=== PATIENT | female | born 1960 | race Caucasian/White ===

== ENCOUNTER → 2016-08-26 | Outpatient (CLI) | payer BC ==
--- NOTE | 2016-08-26 12:10 | RAD ---
DATE: 08/26/2016 EXAM: MAMMO GISELL DIAG RT, BREAST RIGHT HISTORY: Follow-up nodule COMPARISON: 02/26/2016 This study was interpreted with the benefit of Computerized Aided Detection (CAD). FINDINGS: 2-D and 3-D tomosynthesis imaging was performed in CC and MLO projections. The breasts are heterogeneously dense which can decrease the sensitivity of mammography. No suspicious microcalcifications are evident. A small opacity seen in the upper outer quadrant of the right breast on the oblique tomograms of the previous study is not clearly delineated on today's mammograms. No new or enlarging breast nodule is seen in that region. In the medial aspect of the right breast at the 3-4 o'clock location there is a 4 mm smooth nodule identified on axial tomograms image #19. It is located approximately 4-5 cm in the nipple. On axial tomographic image 28 there is a smaller 2.5 mm nodule seen at approximately the 3:00 location in the right breast, 7 cm from the nipple. In retrospect these densities were present on the previous study and appear unchanged. Right breast ultrasound, 08/26/2016: A targeted ultrasound exam of the right breast was performed. At the 10:00 location approximately 6 cm from the nipple there is a small oval-shaped hypoechoic nodule measuring approximately 3.5 mm in greatest diameter. Its margins are smooth. It is unchanged since the 02/26/2016 exam. This only represents a tiny fibroadenoma or complicated cyst. We also targeted the medial aspect of the right breast from the 2:00 to 4:00 locations. A tiny slightly hypoechoic nodule measuring 3 mm in diameter was identified at 3:00 location approximately 3 cm from the nipple. Its margins are smooth. This demonstrates similar characteristics to the 10:00 nodule. This probably corresponds to one of the nodules seen on the mammograms. No other abnormality is seen in this region of the right breast. IMPRESSION: 1. Unchanged small, smooth nodule at the 10:00 location of the right breast. 2. Two small unchanged nodules in the medial aspect of the right breast. Only one is visible sonographically and it demonstrates probably benign features. Follow-up right breast ultrasound at the time of the patient's routine bilateral mammograms in 6 months is suggested to further establish stability. BI-RADS CATEGORY: 3 PROBABLY BENIGN FINDING(S)-SHORT INTERVAL FOLLOW-UP SUGGESTED RECOMMENDED FOLLOW-UP: 6M 6 MONTH FOLLOW-UP PQRS compliance statement: Patient information was entered into a reminder system with a target due date for the next mammogram. Mammography is a sensitive method for finding small breast cancers, but it does not detect them all and is not a substitute for careful clinical examination. A negative mammogram does not negate a clinically suspicious finding and should not result in delay in biopsying a clinically suspicious abnormality. "Our facility is accredited by the [employer] Mammography Program."
== END | disposition home or self-care (01) ==
LOC: MAMMO 09:56
PROVIDERS: ATTEND Physician Assistant Medical
DX: N63 Unspecified lump in breast (principal)
CPT/HCPCS: 76641; G0206; G0279; 77061; 77065

== ENCOUNTER → 2016-11-16 | Outpatient (CLI) | payer BC ==
--- NOTE | 2016-11-16 09:49 | RAD ---
CHEST PA LATERAL Technique: PA and lateral views of the chest were obtained. Clinical History: CHEST CONGESTION W PROD COUGH X 5 DAYS Comparison: Chest radiograph dated 10/01/2015. Findings: Normal lung volume. Emphysematous changes. No focal consolidation. Remote granulomatous disease. No pleural effusion. No pneumothorax. The cardiomediastinal silhouette is normal. The great vessels of the thorax are normal. No acute osseous abnormality. Impression: No acute cardiopulmonary process..
== END | disposition home or self-care (01) ==
LOC: DXRADRC 07:39
PROVIDERS: ATTEND Physician Assistant Medical
DX: R09.89 Other specified symptoms and signs involving the circulatory and respiratory systems (principal); R05 Cough
CPT/HCPCS: 71020

== ENCOUNTER → 2017-02-24 | Outpatient (CLI) | payer BC ==
--- NOTE | 2017-02-24 14:32 | RAD ---
DATE: 02/24/2017 EXAM: DIGITAL DIAGNOSTIC BILATERAL, BREAST BILATERAL HISTORY: 6 month follow-up on the right, routine yearly screening on the left. COMPARISON: 08/26/2016 This study was interpreted with the benefit of Computerized Aided Detection (CAD). The breast parenchyma is heterogeneously dense, which could reduce sensitivity of mammography. Breast parenchyma level C. FINDINGS: 2-D and 3-D tomosynthesis imaging was performed. On the right there is a smooth 3-4 mm nodule in the medial aspect of the right breast as noted on CC tomograms #20. On CC tomogram image #30 there is a smaller 2.5 mm nodule in the medial aspect of the right breast. These findings are unchanged since 08/26/2016. No new or enlarging breast densities are seen. No suspicious microcalcifications are evident. Right breast ultrasound, 02/24/2017: A targeted ultrasound exam of the right breast was performed in the areas of abnormality identified on the 08/26/2016 study. At the 10:00 location in the right breast, approximately 6 cm from the nipple, a small hypoechoic nodule is again identified. It is unchanged in size measuring approximately 3.5 mm. Its margins are smooth. At the 3:00 location in the right breast, approximately 3 cm in the nipple, there is a slightly smaller nodule with similar sonographic characteristics. It measures 3 mm and is unchanged. These both probably represent small fibroadenomas or complicated cysts. No new abnormality is seen. IMPRESSION: Stable benign-appearing right breast nodules. Follow-up right breast ultrasound and right mammography in 6 months is suggested. BI-RADS CATEGORY: 3 PROBABLY BENIGN FINDING(S)-SHORT INTERVAL FOLLOW-UP SUGGESTED RECOMMENDED FOLLOW-UP: 6M 6 MONTH FOLLOW-UP PQRS compliance statement: Patient information was entered into a reminder system with a target due date for the next mammogram. Mammography is a sensitive method for finding small breast cancers, but it does not detect them all and is not a substitute for careful clinical examination. A negative mammogram does not negate a clinically suspicious finding and should not result in delay in biopsying a clinically suspicious abnormality. "Our facility is accredited by the [employer] Mammography [employer]."
== END | disposition home or self-care (01) ==
LOC: MAMMO 12:45
PROVIDERS: ATTEND General Practice
DX: N63.10 Unspecified lump in the right breast, unspecified quadrant (principal)
CPT/HCPCS: 76641; G0204; 77066

== ENCOUNTER → 2017-09-03 | Outpatient (CLI) | payer BC ==
--- NOTE | 2017-09-03 15:23 | RAD ---
DATE: 09/03/2017 EXAM: MAMMO GISELL JOSEG RT, BREAST RIGHT HISTORY: 6 month follow-up COMPARISON: 02/24/2017. This study was interpreted with the benefit of Computerized Aided Detection (CAD). The breast parenchyma is heterogeneously dense, which could reduce sensitivity of mammography. Breast parenchyma level C. FINDINGS: 2-D and 3-D tomosynthesis imaging was performed in CC and MLO projections. There are 2 small smooth nodules again noted medially in the right breast on CC gisell images #22 and 35. No new or enlarging breast densities are seen. No suspicious microcalcifications are evident. Right breast ultrasound, 09/03/2017: A targeted ultrasound exam of the right breast was performed in the areas where nodules were identified on 02/24/2017 study. At the 10:00 location 6 cm from the nipple there is a small hypoechoic nodule measuring 3.5 mm in greatest diameter. It is unchanged in size and configuration its margins are smooth. No significant posterior acoustic enhancement or shadowing is seen. It is slightly wider than tall. We also targeted 3:00 location where a small benign-appearing nodule was seen on the previous study. That nodule is no longer visible. No new abnormality is seen. IMPRESSION: 1. Stable small probably benign nodules in the medial right breast identified mammographically. 2. Stable small probably benign right lateral breast nodule, visible sonographically. 3. Bilateral mammography and right breast ultrasound in 6 months is suggested. BI-RADS CATEGORY: 3 PROBABLY BENIGN FINDING(S)-SHORT INTERVAL FOLLOW-UP SUGGESTED RECOMMENDED FOLLOW-UP: 6M 6 MONTH FOLLOW-UP PQRS compliance statement: Patient information was entered into a reminder system with a target due date for the next mammogram. Mammography is a sensitive method for finding small breast cancers, but it does not detect them all and is not a substitute for careful clinical examination. A negative mammogram does not negate a clinically suspicious finding and should not result in delay in biopsying a clinically suspicious abnormality. "Our facility is accredited by the [employer] Mammography Program."
== END | disposition home or self-care (01) ==
LOC: MAMMO 13:50
PROVIDERS: ATTEND Physician Assistant Medical
DX: N63.11 Unspecified lump in the right breast, upper outer quadrant (principal)
CPT/HCPCS: 76641; 77065; G0279; 77061

== ENCOUNTER → 2018-04-22 | Outpatient (CLI) | payer BC ==
--- NOTE | 2018-04-22 16:13 | RAD ---
Bone densitometry 04/22/2018 1:32 PM Indication: BASELINE, SCREEN, OV FAILURE Comparison Study: None. Discussion: Bone Densitometry was performed with dual photon absorption of the lumbar spine and proximal right femur. Lumbar Spine: Bone average density is 0.834g/cm2 for L1-L4. T-Score is -2.9. Right femoral neck: Bone average density is 0.701g/cm2. T-Score is -2.4. IMPRESSION: Osteoporosis. Fracture risk is considered high Note: Definitions established by the World Health Organization: Normal: T-score is -1.0 or above. Osteopenia: T-score is between -1.0 and -2.5. Osteoporosis: T-score is -2.5 or below. Electronically signed by: William Talavera MD (04/22/2018 2:23 PM) [id number]
--- NOTE | 2018-04-22 16:17 | RAD ---
DATE: 04/22/2018 EXAM: MAMMO GISELL CURTIS NOWAK, BREAST RIGHT HISTORY: 6 month follow-up COMPARISON: 09/03/2017, 08/26/2016 This study was interpreted with the benefit of Computerized Aided Detection (CAD). Breast Density: HETERO The breast parenchyma is heterogenously dense, which could reduce sensitivity of mammography. Breast parenchyma level C. FINDINGS: 2-D and 3-D tomosynthesis imaging was performed in CC and MLO projections. A tiny smooth 3 mm nodule is present medially in the right breast as best seen on CC tomosynthesis images #39. It is unchanged since previous studies dating back to 02/26/2016. This suggests a benign etiology. A 4 mm smooth nodule seen more anteriorly in the medial right breast on the 08/26/2016 study has decreased in size and is only barely visible on right CC gisell image #26. This suggests a benign etiology. A 5 mm nodule is present laterally in the left breast as seen on left CC gisell image #38. It appears unchanged since 02/26/2016 exam. No new or enlarging breast densities are seen. No spiculated mass or architectural distortion is evident. No suspicious microcalcifications are seen. Right breast ultrasound, 04/22/2018: A targeted ultrasound exam of the right breast was performed at the 10:00 location where a small nodule has been seen on previous exams. A small smooth hypoechoic nodule is redemonstrated at the 10:00 location approximately 6 cm from the nipple. It measures 3.2 mm in greatest diameter. It has shown no significant change since previous studies dating back to 02/26/2016. This suggests a benign etiology such as a small fibroadenoma. IMPRESSION: Stable bilateral breast nodules suggesting a benign etiology. Routine yearly follow-up 3-D mammography is suggested. BI-RADS CATEGORY: 2 BENIGN FINDING(S) RECOMMENDED FOLLOW-UP: 12M 12 MONTH FOLLOW-UP PQRS compliance statement: Patient information was entered into a reminder system with a target due date for the next mammogram. Mammography is a sensitive method for finding small breast cancers, but it does not detect them all and is not a substitute for careful clinical examination. A negative mammogram does not negate a clinically suspicious finding and should not result in delay in biopsying a clinically suspicious abnormality. "Our facility is accredited by the [employer] Mammography [employer]."
== END | disposition home or self-care (01) ==
LOC: DXRAD 13:18
PROVIDERS: ATTEND Physician Assistant Medical
DX: N63.13 Unspecified lump in the right breast, lower outer quadrant (principal); N63.23 Unspecified lump in the left breast, lower outer quadrant; M81.0 Age-related osteoporosis without current pathological fracture
CPT/HCPCS: 76641; 77066; 77080; G0279; 77062

== ENCOUNTER → 2019-04-14 | Outpatient (CLI) | payer BC ==
--- NOTE | 2019-04-18 09:55 | RAD ---
EXAM: BILATERAL DIGITAL 3D SCREENING MAMMOGRAPHY. HISTORY: Routine mammographic screening. TECHNIQUE: Bilateral digital 3D and tomographic images were obtained in CC and MLO projections. Computer-aided detection was applied. COMPARISON: 04/22/2018. COMPOSITION: C. The breasts are heterogeneously dense, which may obscure small masses. FINDINGS: A nodule laterally on the left is stable and likely represents a benign lymph node. Coarse calcifications on the right are benign. There are no suspicious masses, microcalcifications or architectural distortion. The parenchymal pattern is stable. BI-RADS CATEGORY 2: Benign. RECOMMENDATION: 1. Routine screening mammography in one year. If mammography demonstrates dense breast tissue (heterogenously dense or extremely dense, category C or D), which could hide abnormalities, and if other risk factors for breast cancer have been identified, supplemental screening tests that may be suggested by the ordering physician may be of benefit. Dense breast tissue, in and of itself, is a relatively common condition. Therefore, this information is not provided to cause undue concern, but rather to raise awareness and to promote discussion with the referring physician regarding the presence of other risk factors, in addition to dense breast tissue. The results of this mammography examination is provided to the patient and referring physician. The patient should contact their referring physician if any questions or concerns exist regarding this report. PQRS compliance statement - Patient information was entered into a reminder system with a target due date for the next mammogram. "Our facility is accredited by the [employer] Mammography [employer]." Electronically signed by: Eleuterio Moreland MD (04/18/2019 9:53 AM) [id number]
== END | disposition home or self-care (01) ==
LOC: MAMMO 10:49
PROVIDERS: ATTEND Physician Assistant Medical
DX: Z12.31 Encounter for screening mammogram for malignant neoplasm of breast (principal); N64.89 Other specified disorders of breast; N63.20 Unspecified lump in the left breast, unspecified quadrant
CPT/HCPCS: 77063; 77067

== ENCOUNTER → 2020-05-22 | Outpatient (CLI) | payer BC ==
--- NOTE | 2020-05-22 13:32 | RAD ---
EXAMINATION: MG BILAT SCREEN+GISELL CLINICAL HISTORY: Routine screening TECHNIQUE: Digital craniocaudal and mediolateral oblique views of the bilateral breasts obtained with 3-D tomosynthesis. COMPARISON: 04/14/2019, 04/14/2018 BREAST COMPOSITION: There are scattered areas of fibroglandular density. FINDINGS: No evidence of suspicious mass, calcifications, or areas of architectural distortion. IMPRESSION: No mammographic evidence of malignancy. BI-RADS ASSESSMENT: Category 1: Negative RECOMMENDATION: Return for routine bilateral screening mammogram in one year. PQRS compliance statement - Patient information was entered into a reminder system with a target due date for the next mammogram. "Our facility is accredited by the [employer] Mammography [employer]." Electronically signed by: Federico Duarte DO (05/22/2020 1:29 PM) [email or web address]
== END ==
LOC: MAMMO 09:02
PROVIDERS: ATTEND Physician Assistant Medical
DX: Z12.31 Encounter for screening mammogram for malignant neoplasm of breast (principal)
CPT/HCPCS: 77063; 77067

== ENCOUNTER → 2021-06-18 | Outpatient (CLI) | payer BC ==
--- NOTE | 2021-06-18 16:30 | RAD ---
INDICATION : Routine Screening. COMPARISON: Priors including March 2019 TECHNIQUE: Standard mammogram screening views of the bilateral breasts were obtained with 3D tomosynt hesis. CAD was utilized. FINDINGS: The breasts are scattered density. No definite suspicious mass. IMPRESSION: BI-RADS Category 1: Negative. Recommend repeat screening examination in one year. The patient was placed into the recall system with a suggested recall date for follow up imaging. Mammography is the most sensitive method for finding small breast cancers, but it does not detect the m all and is not a substitute for careful clinical examination. A negative mammogram does not negate a clinically suspicious finding and should not result in delay in biopsying a clinically suspicious abnormality. Electronically signed by: Isrrael Rodrigues MD (06/18/2021 4:27 PM) [email or web address]
== END ==
LOC: MAMMO 14:01
PROVIDERS: ATTEND Physician Assistant Medical
DX: Z12.31 Encounter for screening mammogram for malignant neoplasm of breast (principal)
CPT/HCPCS: 77063; 77067